=== PATIENT | female | born 1990 | race Caucasian/White ===

== ENCOUNTER 2016-08-13 12:10 | Inpatient (IN) | payer OTHER ==
[~2016-08-13] VITALS: Ht 165.1 cm; Wt 115.8 kg
[2016-08-13 14:24] LABS: BASOPHIL % 0.6 % (0-2); PLATELET COUNT 211 x10^3mcL (130-400); RED CELL DISTRIBUTION WIDTH 14.3 % (11.5-14.5)
[2016-08-13 14:31] LABS: CARBON DIOXIDE 24.8 mmol/L (21-32); CHLORIDE SERUM 103 mmol/L (98-107); CREATININE SERUM 0.8 mg/dL (0.6-1.0); GFR1 > 60 mL/min; GLUCOSE SERUM 115 mg/dL (74-106); POTASSIUM SERUM 4.1 mmol/L (3.5-5.1); SODIUM SERUM 137 mmol/L (136-145)
[2016-08-13 14:36] LABS: ALBUMIN 3.6 g/dL (3.4-5.0); ALKALINE PHOSPHATASE 75 U/L (46-116); ALT/SGPT 75 U/L (14-59); AMYLASE 34 U/L (25-115); AST/SGOT 27 U/L (15-37); BILIRUBIN TOTAL 0.3 mg/dL (0.20-1.00); LIPASE 112 IU/L (73-393); TOTAL PROTEIN, SERUM 7.5 g/dL (6.4-8.2)
[2016-08-13 17:25] LABS: CHOLESTEROL/HDL RATIO 2.8
[2016-08-13 17:33] LABS: T3 TOTAL 1.21 ng/mL
[2016-08-13 17:34] LABS: FREE T4 0.94 ng/dL (0.76-1.46); FREE THYROXINE INDEX 2.2 ug/dL (1.4-4.5); T4(THYROXINE) 6.9 ug/dL (4.7-13.3)
[2016-08-13 19:19] VITALS: BP 124/76
[2016-08-13 21:36] VITALS: BP 108/63
[2016-08-14 06:05] VITALS: BP 119/59
[2016-08-14 06:48] LABS: BASOPHIL % 0.3 % (0-2); PLATELET COUNT 202 x10^3mcL (130-400); RED CELL DISTRIBUTION WIDTH 14.1 % (11.5-14.5)
[2016-08-14 07:06] LABS: ALKALINE PHOSPHATASE 61 U/L (46-116); ALT/SGPT 78 U/L (14-59); AST/SGOT 33 U/L (15-37); BILIRUBIN TOTAL 0.4 mg/dL (0.20-1.00); CALCIUM 8.3 mg/dL (8.5-10.1); CHLORIDE SERUM 106 mmol/L (98-107); CREATININE SERUM 0.8 mg/dL (0.6-1.0); GFR1 > 60 mL/min; GLUCOSE SERUM 87 mg/dL (74-106); MAGNESIUM 1.7 mg/dL (1.8-2.4); PHOSPHOROUS 3.4 mg/dL (2.5-4.9); POTASSIUM SERUM 3.5 mmol/L (3.5-5.1); SODIUM SERUM 140 mmol/L (136-145); TOTAL PROTEIN, SERUM 6.6 g/dL (6.4-8.2)
[2016-08-14 09:41] VITALS: BP 105/61
[2016-08-14 13:00] VITALS: BP 119/72
[2016-08-14 15:28] VITALS: BP 119/50
[2016-08-14 22:24] VITALS: BP 112/61
[2016-08-15 05:57] VITALS: BP 116/64
[2016-08-15 11:30] VITALS: BP 123/84
[2016-08-15 14:44] LABS: BASOPHIL % 0.2 % (0-2); PLATELET COUNT 203 x10^3mcL (130-400); RED CELL DISTRIBUTION WIDTH 14.4 % (11.5-14.5)
[2016-08-15 15:06] LABS: CALCIUM 8.3 mg/dL (8.5-10.1); CARBON DIOXIDE 25.2 mmol/L (21-32); CHLORIDE SERUM 104 mmol/L (98-107); CREATININE SERUM 0.9 mg/dL (0.6-1.0); GFR1 > 60 mL/min; GLUCOSE SERUM 123 mg/dL (74-106); MAGNESIUM 1.8 mg/dL (1.8-2.4); PHOSPHOROUS 2.8 mg/dL (2.5-4.9); POTASSIUM SERUM 4.1 mmol/L (3.5-5.1); SODIUM SERUM 138 mmol/L (136-145)
[2016-08-15 17:52] VITALS: BP 118/72
[2016-08-15 18:18] LABS: microscopic required? YES; urine erythrocyte NEGATIVE (NEGATIVE)
[2016-08-15 18:27] LABS: AMPHETAMINE QUAL UR NONE DETECTED (NEG <=1000)
[2016-08-16 06:10] VITALS: BP 111/70
[2016-08-16 06:15] LABS: BASOPHIL % 0.2 % (0-2); PLATELET COUNT 234 x10^3mcL (130-400); RED CELL DISTRIBUTION WIDTH 14.3 % (11.5-14.5)
[2016-08-16 06:46] LABS: ALBUMIN 3.3 g/dL (3.4-5.0); CALCIUM 8.6 mg/dL (8.5-10.1); CARBON DIOXIDE 24.8 mmol/L (21-32); CHLORIDE SERUM 104 mmol/L (98-107); CREATININE SERUM 0.8 mg/dL (0.6-1.0); GFR1 > 60 mL/min; GLUCOSE SERUM 100 mg/dL (74-106); MAGNESIUM 1.9 mg/dL (1.8-2.4); PHOSPHOROUS 3.4 mg/dL (2.5-4.9); POTASSIUM SERUM 3.5 mmol/L (3.5-5.1); SODIUM SERUM 138 mmol/L (136-145)
[2016-08-16 10:21] VITALS: BP 128/76
[2016-08-16] MEDS ORDERED: ZOF4 PO (12:01)
[2016-08-16] MEDS ORDERED: NORCO1 TA2 PO (12:03)
[2016-08-16] MEDS ORDERED: COLACE100 MG PO (12:04)
[2016-08-16] MEDS ORDERED: FLAGYL500 MG PO (12:48)
[2016-08-16] MEDS ORDERED: KEFLEX500 M1 PO ×2 (12:48→14:18)
[2016-08-16] MEDS ORDERED: LAC PO (12:50)
[2016-08-16 13:26] VITALS: BP 128/76
[2016-08-16] MEDS ORDERED: LEVAQUIN500 M1 PO (14:08)
== END 2016-08-16 14:00 | disposition home or self-care (01) | DRG 263 ==
LOC: ED 12:10 → MU 16:47 → DU 16:47 → MU 08-14 16:57
PROVIDERS: Emergency Medicine; Family Medicine; Surgery; ADMIT Family Medicine
PROC: 8E0W4CZ Robotic Assisted Procedure of Trunk Region, Percutaneous Endoscopic Approach (ICD-10-PCS; 2016-08-15)
PROC: 0FT44ZZ Resection of Gallbladder, Percutaneous Endoscopic Approach (ICD-10-PCS; principal; 2016-08-15 07:30)
DX: K80.00 Calculus of gallbladder with acute cholecystitis without obstruction (principal); E43 Unspecified severe protein-calorie malnutrition; Z68.41 Body mass index [BMI] 40.0-44.9, adult; E66.01 Morbid (severe) obesity due to excess calories; E83.42 Hypomagnesemia; E78.5 Hyperlipidemia, unspecified; D64.9 Anemia, unspecified; N39.0 Urinary tract infection, site not specified; Z87.891 Personal history of nicotine dependence
CPT/HCPCS: 80307; 83880; 84439; 94150; J0295; J1170; J2060; J2250; J2270; J2405; J2550; J3010; J3475; J3490; J7030; Q0092

== ENCOUNTER 2017-01-20 18:14 | Emergency (ER) | payer OTHER ==
[~2017-01-20] VITALS: Ht 165.1 cm; Wt 108.9 kg
[~2017-01-20 18:14] MED LIST: COLACE100 MG PO; FLAGYL500 MG PO; KEFLEX500 M1 PO; LAC PO; LEVAQUIN500 M1 PO; NORCO1 TA2 PO; ZOF4 PO
[2017-01-20 20:40] VITALS: BP 115/88
== END 2017-01-20 20:30 | disposition home or self-care (01) ==
LOC: ED 18:14
DX: S80.02XA Contusion of left knee, initial encounter (principal); E66.01 Morbid (severe) obesity due to excess calories; Y08.89XA Assault by other specified means, initial encounter; Y93.89 Activity, other specified; Y92.89 Other specified places as the place of occurrence of the external cause; Y99.8 Other external cause status

== ENCOUNTER 2017-03-23 19:54 | Emergency (ER) | payer OTHER ==
[2017-03-23 21:41] VITALS: BP 128/88
== END 2017-03-23 21:41 | disposition home or self-care (01) ==
LOC: ED 19:54
DX: H65.91 Unspecified nonsuppurative otitis media, right ear (principal); J02.9 Acute pharyngitis, unspecified

== ENCOUNTER 2017-06-01 18:41 | Emergency (ER) | payer OTHER ==
[~2017-06-01] VITALS: Ht 165.1 cm; Wt 107.0 kg
[2017-06-01 19:02] VITALS: Ht 165.1 cm; Wt 107.0 kg
[2017-06-01 22:02] VITALS: BP 135/77
== END 2017-06-01 22:31 | disposition home or self-care (01) ==
LOC: ED 18:41
DX: L05.01 Pilonidal cyst with abscess (principal)
CPT/HCPCS: J1885; J2001

== ENCOUNTER 2018-02-02 06:40 | Emergency (ER) | payer OTHER ==
[~2018-02-02] VITALS: Ht 165.1 cm; Wt 103.4 kg
[2018-02-02 06:50] VITALS: Ht 165.1 cm; Wt 103.4 kg
[2018-02-02 07:31] LABS: BASOPHIL % 0.3 % (0-2); PLATELET COUNT 212 x10^3mcL (130-400); RED CELL DISTRIBUTION WIDTH 12.9 % (11.5-14.5)
[2018-02-02 07:39] LABS: CALCIUM 8.8 mg/dL (8.5-10.1); CARBON DIOXIDE 22.6 mmol/L (21-32); CHLORIDE SERUM 106 mmol/L (98-107); CREATININE SERUM 0.9 mg/dL (0.6-1.0); GFR1 > 60 mL/min; GLUCOSE SERUM 99 mg/dL (74-106); POTASSIUM SERUM 3.8 mmol/L (3.5-5.1); SODIUM SERUM 140 mmol/L (136-145)
[2018-02-02 07:44] LABS: ALBUMIN 3.5 g/dL (3.4-5.0); ALKALINE PHOSPHATASE 81 U/L (46-116); ALT/SGPT 57 U/L (14-59); AST/SGOT 27 U/L (15-37); BILIRUBIN TOTAL 0.29 mg/dL (0.20-1.00); LIPASE 121 IU/L (73-393); TOTAL PROTEIN, SERUM 7.5 g/dL (6.4-8.2)
[2018-02-02 10:54] LABS: AMPHETAMINE QUAL UR NONE DETECTED (See below)
[2018-02-02 12:10] VITALS: BP 116/61
== END 2018-02-02 12:10 | disposition home or self-care (01) ==
LOC: ED 06:40
PROVIDERS: Emergency Medicine
DX: K21.9 Gastro-esophageal reflux disease without esophagitis (principal); R51 Headache; F12.90 Cannabis use, unspecified, uncomplicated; F17.210 Nicotine dependence, cigarettes, uncomplicated; Z90.89 Acquired absence of other organs
CPT/HCPCS: J3490; J7030; Q0092; Q0162